=== PATIENT | male | born 1945 | race Caucasian/White ===

== ENCOUNTER 2024-04-21 14:57 | Emergency (ER) | payer MEDICARE ==
[~2024-04-21] VITALS: Ht 180.3 cm; Wt 109.1 kg
[~2024-04-21 14:57] MED LIST: APIX5TAB3 PO; BUME0.5T6 PO; CHOL10008 PO; HYDR25TA90 PO; INSU100I40; LEVO50TA8 PO; LOSA25TA41 PO; ROSU40TA71 PO; SOTA80TA PO
[2024-04-21 15:26] LABS: BASOPHILS # (AUTO) 0.1 X10'3 (0-0.2); BASOPHILS % (AUTO) 0.8 % (0-1); EOSINOPHILS # (AUTO) 0.1 X10'3 (0-0.9); EOSINOPHILS % (AUTO) 1.7 % (0-6); HEMATOCRIT 31.5 % (42.0-52.0); HEMOGLOBIN 10.2 g/dl (14.0-17.9); LYMPHOCYTES # (AUTO) 0.7 X10'3 (1.1-4.8); LYMPHOCYTES % (AUTO) 10.1 % (21-51); MEAN CORPUSCULAR HGB CONC 32.3 g/dL (33.0-36.5); MEAN CORPUSCULAR VOLUME 89.7 FL (78-98); MEAN PLATELET VOLUME 10.8 FL (7.4-10.4); MONOCYTES # (AUTO) 0.6 X10'3 (0-0.9); MONOCYTES % (AUTO) 8.7 % (2-12); NEUTROPHILS # (AUTO) 5.2 X10'3 (1.8-7.7); NEUTROPHILS % (AUTO) 78.7 % (42-75); PLATELET COUNT 176 X10'3 (140-440); RED BLOOD COUNT 3.51 X10'6 (4.70-6.10); RED CELL DISTRIBUTION WIDTH 16.2 % (11.5-14.5); WHITE BLOOD COUNT 6.6 X10'3 (4.5-11.0)
[2024-04-21 15:35] LABS: ALANINE AMINOTRANSFERASE 37 U/L (12-78); ALBUMIN 2.8 G/DL (3.4-5.0); ALBUMIN/GLOBULIN RATIO 0.8 (1.1-1.5); ALKALINE PHOSPHATASE 113 IU/L (46-116); ANION GAP 8 (8-16); ASPARTATE AMINO TRANSFERASE 28 U/L (10-37); BILIRUBIN,TOTAL 0.6 MG/DL (0.1-1.0); BLOOD UREA NITROGEN 37 MG/DL (7-18); BUN/CREATININE RATIO 16.3 (10.0-20.0); CALCIUM 9.1 MG/DL (8.5-10.1); CHLORIDE 105 MMOL/L (99-107); CREATININE 2.27 MG/DL (0.60-1.10); GLUCOSE 174 MG/DL (70-104); POTASSIUM 4.3 MMOL/L (3.5-5.1); SODIUM 141 MMOL/L (135-145); TOTAL CARBON DIOXIDE 27.7 MMOL/L (24-32); TOTAL PROTEIN 6.4 G/DL (6.4-8.2); eCRCL 29 ML/MIN; eGFR 28 ML/MIN
[2024-04-21 15:42] LABS: PRO BRAIN NATRIURETIC PEPTIDE 8059 PG/ML (0-450)
[2024-04-21] MEDS ORDERED: bumetanide 1mg tablet PO SCH (16:50)
[2024-04-21] MEDS ORDERED: bumetanide 1mg tablet PO ONE (16:50)
[2024-04-21 17:13] VITALS: BP 192/93; PULSE 73; RESP 14; TEMP 97.8; O2SAT 95
== END 2024-04-21 17:18 | disposition home or self-care (01) ==
LOC: ER 14:58
DX: I50.9 Heart failure, unspecified (principal); N18.9 Chronic kidney disease, unspecified; Z88.5 Allergy status to narcotic agent; Z79.899 Other long term (current) drug therapy
CPT/HCPCS: 36415; 71045; 80053; 83880; 84484; 85025; 93005; 99285